=== PATIENT | female | born 1985 | race Caucasian/White ===

== ENCOUNTER 2021-05-30 10:24 | Emergency (ER) | payer BC ==
[~2021-05-30] VITALS: Ht 160 cm; Wt 72.6 kg
[2021-05-30 10:30] VITALS: BP 159/95
[2021-05-30] MEDS ORDERED: AZIT250T13 PO (12:44)
--- NOTE | 2021-05-30 12:57 | NUR ---
Patient discharged to home in stable condition. Written and verbal after care instructions given. Patient verbalizes understanding of instruction.
== END 2021-05-30 12:57 | disposition home or self-care (01) ==
LOC: ER 10:34
DX: R05.9 Cough, unspecified (principal); R50.9 Fever, unspecified; J40 Bronchitis, not specified as acute or chronic; Z79.899 Other long term (current) drug therapy
CPT/HCPCS: 71045-TC